=== PATIENT | male | born 1950 | race African-American/Black ===

== ENCOUNTER 2021-11-05 11:36 | Outpatient (REF) | payer OTHER, SELFPAY ==
--- NOTE | ~2021-11-05 | CT_ITS ---
EXAMINATION: CT HEAD WITHOUT CONTRAST CLINICAL INFORMATION: Subdural hematoma. COMPARISON: None available. TECHNIQUE: Contiguous axial imaging was performed from the skull base to vertex without intravenous administration of contrast. This CT examination was performed using dose optimization techniques as appropriate, variously including the following: *Automated exposure control *Adjustment of mA and/or kV according to patient size (this includes techniques or standardized protocols for targeted exams where dose is matched to indication/reason for exam; i.e. extremities or head) *Use of iterative reconstruction technique FINDINGS: There is a large mixed density right holohemispheric subdural hematoma measuring up to 1.4 cm in maximal thickness that results in right cerebral sulcal effacement and 4 mm leftward midline shift. There is global cerebral volume loss and there is moderate chronic microangiopathy. Frausto to white matter differentiation is diffusely maintained without evidence of an evolved acute territorial infarct. The basilar cisterns are preserved. No significant soft tissue abnormality. No acute osseous abnormality. Retention cysts within the left maxillary sinus. CT/CT head/brain wo con IMPRESSION: - There is a large mixed density right holohemispheric subdural hematoma measuring up to 1.4 cm in maximal thickness that results in right cerebral sulcal effacement and 4 mm leftward midline shift. - There is global cerebral volume loss and there is moderate chronic microangiopathy. Covering provider paged with these findings at 12:22 PM on 11/05/2021.
== END 2021-11-05 11:37 | disposition home or self-care (01) ==
LOC: HO.CT 11:36
PROVIDERS: Visit Provider Internal Medicine
DX: I62.9 Nontraumatic intracranial hemorrhage, unspecified (principal)
CPT/HCPCS: 70450

== ENCOUNTER 2021-11-05 12:57 | Emergency (ER) | payer OTHER, SELFPAY ==
--- NOTE | 2021-11-05 13:07 | ED_ITS ---
HPI - General Adult General Chief complaint: General Medical Stated complaint: brain bleed Time Seen by Provider: 11/05/21 13:07 Source: patient Mode of arrival: ambulatory History of Present Illness HPI narrative: 70-year-old male with history of trauma in August of this year at [facility] and at that time was noted to have a subdural bleed. Patient was then under the care of a primary care provider under the [facility] system in was scheduled to follow- up with neural surgery, but then obtained healthcare which dictated did he get follow-up at [facility] and he was scheduled for a CT scan of his head in follow-up. I received a call today from the radiologist stating that he had worsening subdural hematoma with an associated 4 mm midline shift. Patient denies any current complaints. Patient denies any headache, visual changes, as a matter fact he states that his vision has improved since the initial traumatic event, he denies any dizziness or unsteady gait. Related Data Allergies Allergy/AdvReac Type Severity Reaction Status Date / Time No Known Allergies Allergy Verified 11/05/21 14:54 Review of Systems Review of Systems: Pertinent positives and negatives as stated in HPI 10 point review of systems is otherwise negative PMFSH Past Medical History Source: nursing notes reviewed Social History Social History Alcohol intake: never Patient Tobacco Use Status: Never used Tobacco Use of substances other than those prescribed or required for medical reasons: No Advance Directives: No Advance Directives Information Provided: Yes Physical Exam ED Vital Signs: Vital Signs - 24 hr 11/05/21 13:13 Temperature 98.1 F Pulse Rate 84 Respiratory Rate 18 Blood Pressure 119/81 Pulse Oximetry 98 Oxygen Delivery Method Room Air BMI result Body Mass Index 24.9 VITAL SIGNS: Reviewed. GENERAL: Well developed, well nourished, in no acute distress. HEAD: Normocephalic/atraumatic EYES: PERRLA, EOMI without nystagmus EARS: Ext canals without abnormality OROPHARYNX: no oral lesions noted, posterior pharynx clear LUNGS: Normal breath sounds. No adventitious sounds or accessory muscle use. SpO2<98> CARDIOVASCULAR: Regular rate and rhythm without noted murmurs, no JVD or lower extremity edema. ABDOMEN: Soft, non-tender, non-distended with bowel sounds. MUSCULOSKELETAL: No tenderness, deformities, or effusions noted on gross inspection. EXTREMITIES: No cyanosis, clubbing or edema. SKIN: Inspection of the skin reveals no rashes, NEUROLOGIC: Alert and oriented x 4. Strength and sensation to light touch were grossly intact x 4, no facial asymmetry, no pronator drift, cranial nerves 2-12 are grossly intact.. Course Course Course Narrative: 70-year-old male with history and clinical presentation consistent with expanding subdural hematoma as well as a midline shift of 4 mm without focal deficits. I discussed the case with [facility] neural surgery and on review of all investigations there are no acute findings other than the CT findings. Patient is requesting to leave, stating that ?my head is itching which is a sign that I am healing? and he is refusing transfer to [facility] stating that he ?has something to do at home?. He states that he has a good relationship with God and he does not believe that if he is able to down surrounding that there is any problem. He was informed that the shift could results in sudden collapse and ultimately . Patient refuses to stay, stating that he has something to do and he may consider coming back at a later time. Patient acknowledges understanding that he is signing out against medical advice. Reevaluation(s) Reevaluation #1: Dr Pacheco from radiology called with critical change in head CT that was ordered outpatient by Dr Zapata Time: 13:06 Reevaluation #2: Dr Zapata called and ordered head CT.....f/u subdural , neuro surgery rec f/u in 2 weeks. longstanding cognitive impairment. [place] [facility] [place] that [place] [facility] [place] Arpan Loya Time: 13:11 Medical Decision Making Lab Data Result diagrams: 11/05/21 14:03 11/05/21 14:03 Labs: Lab Results 11/05/21 11/05/21 11/05/21 Range/Units 14:03 14:03 14:03 WBC 5.3 (4.8-10.8) X10*3/uL RBC 4.97 (4.60-5.80) X10*6/uL Hgb 15.0 (14.0-18.0) g/dl Hct 46.1 (42.0-52.0) % MCV 92.8 (80.0-98.0) fL MCH 30.2 (27.0-33.0) pg MCHC 32.5 (31.0-36.0) g/dl RDW 12.5 (11.0-16.0) % Plt Count 229 (160-400) X10*3/uL MPV 10.0 (9.4-12.4) fL Immature Gran % (Auto) 0.4 (0.0-0.4) % Neut % (Auto) 57.4 (45-73) % Lymph % (Auto) 27.4 (20-40) % Wheeler % (Auto) 11.4 H (2-11) % Eos % (Auto) 2.1 (0-4) % Baso % (Auto) 1.3 (0-2) % Lymph # (Auto) 1.4 (1.2-4.9) X10*3/uL Wheeler # (Auto) 0.6 (0.1-1.2) X10*3/uL Eos # (Auto) 0.1 (0.0-0.4) X10*3/uL Baso # (Auto) 0.1 (0.0-0.2) X10*3/uL Abs Immat Gran (auto) 0.02 (0.00-0.03) X10*3/uL Absolute Neuts (auto) 3.0 (2.0-8.3) x10*3/uL Absolute Nucleated RBC 0.000 (0.0-0.012) X10*3/uL Nucleated RBC % (auto) 0.0 (0.0-0.2) /100WBC PT 11.8 (9.9-13.0) SEC INR 1.0 (0.9-1.1) Sodium 141 (135-145) mmol/L Potassium 4.5 (3.3-5.1) mmol/L Chloride 103 (96-108) mmol/L Carbon Dioxide 30 H (22-29) mmol/L Anion Gap 13 (12-20) BUN 5 L (9-16) mg/dL Creatinine 1.09 (0.5-1.4) mg/dL Estim Creat Clear Calc 73.3 Estimated GFR > 60 Random Glucose 89 (60-115) mg/dL Calcium 9.4 (8.4-10.2) mg/dL COVID-19 (ABHI) (Negative) COVID-19 Clin Com 11/05/21 Range/Units 14:03 WBC (4.8-10.8) X10*3/uL RBC (4.60-5.80) X10*6/uL Hgb (14.0-18.0) g/dl Hct (42.0-52.0) % MCV (80.0-98.0) fL MCH (27.0-33.0) pg MCHC (31.0-36.0) g/dl RDW (11.0-16.0) % Plt Count (160-400) X10*3/uL MPV (9.4-12.4) fL Immature Gran % (Auto) (0.0-0.4) % Neut % (Auto) (45-73) % Lymph % (Auto) (20-40) % Wheeler % (Auto) (2-11) % Eos % (Auto) (0-4) % Baso % (Auto) (0-2) % Lymph # (Auto) (1.2-4.9) X10*3/uL Wheeler # (Auto) (0.1-1.2) X10*3/uL Eos # (Auto) (0.0-0.4) X10*3/uL Baso # (Auto) (0.0-0.2) X10*3/uL Abs Immat Gran (auto) (0.00-0.03) X10*3/uL Absolute Neuts (auto) (2.0-8.3) x10*3/uL Absolute Nucleated RBC (0.0-0.012) X10*3/uL Nucleated RBC % (auto) (0.0-0.2) /100WBC PT (9.9-13.0) SEC INR (0.9-1.1) Sodium (135-145) mmol/L Potassium (3.3-5.1) mmol/L Chloride (96-108) mmol/L Carbon Dioxide (22-29) mmol/L Anion Gap (12-20) BUN (9-16) mg/dL Creatinine (0.5-1.4) mg/dL Estim Creat Clear Calc Estimated GFR Random Glucose (60-115) mg/dL Calcium (8.4-10.2) mg/dL COVID-19 (ABHI) Negative (Negative) COVID-19 Clin Com See Note ECG Data Attestation: I personally reviewed and interpreted this ECG as follows: Prior ECG tracings: not available for review Interpretation: Normal sinus rhythm, HR-62, no STEMI, MN/QRS/QTC is within normal limits. Discharge Plan Discharge Clinical Impression: Subdural hematoma, Midline shift of brain due to hematoma Patient Disposition: Home, Self-Care Instructions: Intracranial Hematoma (ED) Additional Instructions: Do not hesitate to come back to the emergency room for definitive treatment. You have been provided referral below for neurosurgery. Referrals: Evan Zapata MD [Physician] - [facility] Neurosurgery [Outside] Stand Alone Forms: Against Medical Advice Interventions: ED Discharge Assessment Last Done: 11/05/21 15:59
[2021-11-05 13:13] VITALS: BP 119/81; PULSE 84; RESP 18; TEMP 36.7; O2SAT 98; BMI 24.9
--- NOTE | 2021-11-05 14:09 | ECG_ITS ---
Test Reason : SUBDURAL BLEED Blood Pressure : / mmHG Vent. Rate : 062 BPM Atrial Rate : 062 BPM P-R Int : 158 ms QRS Dur : 076 ms QT Int : 424 ms P-R-T Axes : 055 011 063 degrees QTc Int : 430 ms Normal sinus rhythm Normal ECG No previous ECGs available Referred By: Tami Linn Electronically Signed By:Morro Schultz
[2021-11-05 14:12] LABS: MANUAL DIFF FLAG NO
[2021-11-05 14:14] LABS: Basophils Absolute Auto 0.1 X10*3/uL (0.0-0.2); Basophils Percent Auto 1.3 % (0-2); Eosinophils Absolute Auto 0.1 X10*3/uL (0.0-0.4); Eosinophils Percent Auto 2.1 % (0-4); Hematocrit 46.1 % (42.0-52.0); Imm Gran Abs Auto 0.02 X10*3/uL (0.00-0.03); Imm Gran Pct Auto 0.4 % (0.0-0.4); Lymphocytes Absolute Auto 1.4 X10*3/uL (1.2-4.9); Lymphocytes Percent Auto 27.4 % (20-40); Mean Corpuscular HGB Conc 32.5 g/dl (31.0-36.0); Mean Corpuscular Hemoglobin 30.2 pg (27.0-33.0); Mean Corpuscular Volume 92.8 fL (80.0-98.0); Monocytes Absolute Auto 0.6 X10*3/uL (0.1-1.2); Monocytes Percent Auto 11.4 % (2-11); Neutrophils Percent Auto 57.4 % (45-73); Platelet Count 229 X10*3/uL (160-400); Red Blood Count 4.97 X10*6/uL (4.60-5.80); Red Cell Distribution Width 12.5 % (11.0-16.0); White Blood Count 5.3 X10*3/uL (4.8-10.8)
[2021-11-05 14:20] LABS: Prothrombin Time 11.8 SEC (9.9-13.0)
[2021-11-05 14:31] LABS: Anion Gap 13 (12-20); Blood Urea Nitrogen 5 mg/dL (9-16); Calcium 9.4 mg/dL (8.4-10.2); Carbon Dioxide 30 mmol/L (22-29); Chloride 103 mmol/L (96-108); Creatinine Clr Calc Pharmacy 73.3; Estimated Glomerular Filt Rate > 60; Glucose Random 89 mg/dL (60-115); Potassium 4.5 mmol/L (3.3-5.1); Sodium 141 mmol/L (135-145)
[2021-11-05 14:36] LABS: COVID-19 Test Negative (Negative); IDNOW Serial# 55D5AD1C
--- NOTE | 2021-11-05 14:49 | PC.NURSE ---
@ [phone] DR WILCOX REQUESTS CALL OUT TO [facility] PT TX LINE MITCHEL ANSWERS,TAKES PT INFO THEN ASKS TO SPEAK WITH DR BRENDEN WILCOX TAKES OVER CALL RIGHT AWAY
--- NOTE | 2021-11-05 15:00 | PC.NURSE ---
[id number] CALL RECEIVED FROM VERONICA OF [facility] PT TX LINE ASKING TO SPEAK WITH DR BRENDEN WILCOX TAKES OVER CALL RIGHT AWAY
== END 2021-11-05 16:04 | disposition left against medical advice (07) ==
PROVIDERS: Emergency Provider Student in an Organized Health Care Education/Training Program
DX: I62.00 Nontraumatic subdural hemorrhage, unspecified (principal); Z20.822 Contact with and (suspected) exposure to COVID-19
CPT/HCPCS: 80048; 85025; 85610; 87635; 93005; 99283